=== PATIENT | female | born 1995 | race Caucasian/White ===

== ENCOUNTER 2023-05-14 19:06 | Emergency (ER) | payer OTHER ==
[2023-05-14 19:33] VITALS: RESP 16; BMI 24.3
[2023-05-14 20:19] LABS: HEMATOCRIT 38.4 % (32.4-45.2); HEMOGLOBIN 13.3 G/dL (10.7-15.3); MCH 30.7 pg (25.7-33.7); MCHC 34.7 g/dl (32.0-36.0); MEAN CELL VOLUME 88.5 fl (80-96); MEAN PLT VOLUME 7.8 fl (7.5-11.1); PLATELET COUNT 273.4 10^3/uL (134-434); RBC 4.34 10^6/uL (3.60-5.2); RDW 13.9 % (11.6-15.6)
[2023-05-14 20:38] LABS: BILIRUBIN,TOTAL 0.4 mg/dl (0.2-1); BLOOD UREA NITROGEN 9.1 mg/dl (7-18); CALCIUM 9.1 mg/dl (8.5-10.1); CREATININE 0.7 mg/dl (0.6-1.3); POTASSIUM 3.9 mmol/L (3.5-5.1); SGOT/AST 13.1 U/L (15-37); SGPT/ALT 11.5 U/L (7-52); TOT PROT 6.1 g/dl (6.4-8.2)
[2023-05-14] MEDS ORDERED: RHO(D) IMMUNE GLOBULIN 1,500 UNIT DISP.SYRIN IM ONE (21:13)
[2023-05-15 00:09] VITALS: BP 113/75; PULSE 96; TEMP 97.9
== END 2023-05-15 00:15 | disposition home or self-care (01) ==
LOC: FER 19:06
PROC: 3E0234Z Introduction of Serum, Toxoid and Vaccine into Muscle, Percutaneous Approach (ICD-10-PCS; principal; 2023-05-15)
DX: O20.0 Threatened abortion (principal); O26.892 Other specified pregnancy related conditions, second trimester; R10.9 Unspecified abdominal pain; Z3A.20 20 weeks gestation of pregnancy
CPT/HCPCS: 36415; 76801-TC; 80053; 81003; 84702; 85027; 86850; 86900; 86901; 87086; 99284-25; J2790